=== PATIENT | male | born 1975 | race African-American/Black ===

== ENCOUNTER 2018-01-11 16:42 | Emergency (ER) | payer OTHER ==
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
[2018-01-11 16:47] VITALS: BP 117/85
[2018-01-11] MEDS ORDERED: ZOLP-1 PO (16:52)
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
[2018-01-11] MEDS ORDERED: IBUP600T22 PO (18:24)
[2018-01-11] MEDS ORDERED: OXYC-865 PO (18:24)
--- NOTE | 2018-01-11 18:32 | RADIOLOGY IMAGING REPORT ---
[place] [facility] [place] : 1975 MR: [id number] V: [id number] EXAM DATE: ORDERING PHYSICIAN: FIONA ARAGON TECHNOLOGIST: [place] [facility] [place] Patient: Andrea Maya : 1975 Visit/Account:[id number] Date of Sevice: 01/11/2018 INDICATION: likely surgical fracture of foot. Further evaluate fracture margins. DATE: 01/11/2018 6:16 PM. TECHNIQUE: FOOT LEFT W/O CONTRAST. Noncontrast axial CT imaging was performed through the left foot w ith sagittal and coronal reformats. One of the following dose optimization techniques was utilized in the performance of this exam: Automated exposure control; adjustment of the mA and/or kV according t o the patient's size; or use of an iterative reconstruction technique. Specific details can be refe renced in the facility's radiology CT exam operational policy. COMPARISON: Foot radiographs of the same day. FINDINGS: A fracture the fifth metatarsal is extensively comminuted with oblique fracture lines extending from the proximal shaft to the metatarsal head. A fracture of the fourth metatarsal head is extensive a co mminuted as are fractures of the second and third metatarsal heads. A sesamoid adjacent to the second metatarsal head is fractured. Additionally, there is a nondisplaced fracture of the cuboid extending to the base of the cuboid-metatarsal articulations. History findings are moderate at the first MTP joint. Soft tissue lobulations on the dorsum of the foot are likely hematomas. IMPRESSION: 1. Comminuted fractures of the second through fifth metatarsals as above. 2. Nondisplaced fracture of the cuboid extending to the cuboid-metatarsal articulations. 3. Fractured sesamoid adjacent to the second metatarsal head. Report Dictated By: Ileana Cruz MD at 01/11/2018 6:16 PM Report E-Signed By: Ileana Cruz MD at 01/11/2018 6:28 PM WSN:[id number]
== END 2018-01-11 19:20 | disposition home or self-care (01) ==
LOC: ER 16:47
DX: S92.902A Unspecified fracture of left foot, initial encounter for closed fracture (principal)
CPT/HCPCS: 99284